=== PATIENT | male | born 1930 | race Caucasian/White ===

== ENCOUNTER 2020-10-11 08:50 | Outpatient (CLI) | payer MEDICARE | END 2020-10-11 08:51 | disposition home or self-care (01) | LOC: BICRAD 08:50 | PROVIDERS: ATTEND Student in an Organized Health Care Education/Training Program | DX: M25.551 Pain in right hip (principal); M16.11 Unilateral primary osteoarthritis, right hip ==

== ENCOUNTER 2020-10-12 09:20 | Inpatient (IN) | payer MEDICARE ==
[2020-10-12] MEDS ORDERED: Cefepime 2 GM VIAL ONE (09:50)
[2020-10-12] MEDS ORDERED: Ondansetron PF 4 MG/2 ML Vial ONE (09:50)
[2020-10-12 10:08] LABS: Hemoglobin 12.9 g/dL (14.0-18.0); Mean Corpuscular HGB CONC 32.7 g/dL (32.0-36.0); Mean Corpuscular Hemoglobin 31.5 pg (27.0-31.0); Mean Corpuscular Volume 96.3 fL (78.0-98.0); Mean Platelet Volume 8.2 fL (7.4-10.4); Platelet Count 223 thou/uL (130-400); RBC Distribution Width 11.9 % (11.5-14.5); Red Blood Cell (RBC) Count 4.09 mill/uL (4.70-6.10)
[2020-10-12 10:15] LABS: ALT (SGPT) 22 U/L (8-55); AST (SGOT) 26 U/L (5-34); Alkaline Phosphatase 113 U/L (40-110); Anion Gap 19 mmol/L (10-20); BUN (Urea Nitrogen) 73 mg/dL (8.4-25.7); Bilirubin, Total 0.5 mg/dL (0.2-1.2); Calc. Creatinine Clearance 0 mL/min (70-130); Calcium 8.9 mg/dL (7.8-10.44); Carbon Dioxide 18 mmol/L (23-31); Chloride 104 mmol/L (98-107); Globulin 3.1 g/dL (2.4-3.5); Glucose 124 mg/dL (83-110); Potassium 4.8 mmol/L (3.5-5.1); Protein, Total 6.1 g/dL (5.8-8.1); Sodium 136 mmol/L (136-145)
[2020-10-12 10:23] LABS: Band 16 % (5-11); Lymphocytes 3 % (21-51); MDiff Complete? YES; Monocytes 2 % (0-10); Neutrophil 79 % (42-75); Platelet Morphology Comment Appears Adequate; Polychromasia SLIGHT = 2-3 cells (100X) (0-2/hpf); Vacuoles SLIGHT
[2020-10-12] MEDS ORDERED: Vancomycin 1 GM/200 ML BAG ONE (10:49)
[2020-10-12] MEDS ORDERED: Fentanyl 100 MCG/2 ML VIAL ONE (13:33)
[2020-10-12] MEDS ORDERED: Norepinephrine 4 MG/4 ML VIAL ONE (13:33)
[2020-10-12] MEDS ORDERED: Albumin 5% 0 ML ONE (13:34)
[2020-10-12] MEDS ORDERED: SUGAMMADEX SODIUM 200 MG/2 ML VIAL ONE (13:34)
[2020-10-12] MEDS ORDERED: Rocuronium Bromide 10 MG/ML (10ML VIAL) ONE (14:00)
[2020-10-12] MEDS ORDERED: Glycopyrrolate 0.2 MG/ML 5 ML SYRINGE ONE (14:00)
[2020-10-12] MEDS ORDERED: Acetaminophen 325 MG TAB PO PRN (14:10)
[2020-10-12] MEDS ORDERED: Ondansetron PF 4 MG/2 ML Vial IVP PRN (14:10)
[2020-10-12] MEDS ORDERED: Ondansetron ODT 4 MG TAB PO PRN (14:10)
[2020-10-12 14:11] LABS: CKMB 1.1 ng/mL (0-6.6)
[2020-10-12] MEDS ORDERED: Electrolyte Replacement Protocol 1 EACH IVPB ONE (14:16)
[2020-10-12] MEDS ORDERED: Norepinephrine 8 MG/0.9% NS 250 ML IVPB PRN (14:16)
[2020-10-12 14:33] LABS: SARS-CoV-2 NAA Rapid Test Not Detected (NotDetected)
[2020-10-12 14:41] LABS: Bacteria/HPF 4+ HPF (None Seen); Bilirubin Negative (Negative); Blood, Urine 3+ (Negative); Clarity Extra Turbid (Clear); Glucose, Urine (Dipstick) Normal (Negative); Ketone, Urine Negative (Negative); Leukocyte 500 Leu/uL (Negative); Nitrite Negative (Negative); Protein, Urine (Dipstick) 50 mg/dL (Neg-Trace); RBC/HPF Greater than 50 HPF (0-3); Specific Gravity, Urine 1.007 (1.002-1.036); Squamous Epithelial None Seen HPF (0-3); Urobilinogen Normal mg/dL (Less than 2); WBC/HPF Greater than 50 HPF (0-3); pH, Urine 5.5 (5.0-9.0)
[2020-10-12] MEDS ORDERED: Iothalamate Meglumine 60% 50 ML VIAL FS ONE (14:44)
[2020-10-12] MEDS ORDERED: cefTRIAXone\\ROCEPHIN 1 GM in Sodium Chloride 0.9% 100 ML IVPB SCH (15:00)
[2020-10-12] MEDS: Sodium Chloride 0.9% 1,000 ML IV SCH (21:26)
[2020-10-13] MEDS: Hydrocortisone Sod Succ/PF 100 mg/2 ml Vial IVP SCH ×6 (00:33→23:00)
[2020-10-13 04:02] LABS: ALT (SGPT) 18 U/L (8-55); AST (SGOT) 25 U/L (5-34); Albumin 2.2 g/dL (3.4-4.8); Alkaline Phosphatase 85 U/L (40-110); Anion Gap 11 mmol/L (10-20); BUN (Urea Nitrogen) 56 mg/dL (8.4-25.7); Bilirubin, Total 0.3 mg/dL (0.2-1.2); Calc. Creatinine Clearance 21 mL/min (70-130); Calcium 8.1 mg/dL (7.8-10.44); Carbon Dioxide 20 mmol/L (23-31); Chloride 112 mmol/L (98-107); Globulin 2.4 g/dL (2.4-3.5); Glucose 106 mg/dL (83-110); Potassium 4.5 mmol/L (3.5-5.1); Protein, Total 4.6 g/dL (5.8-8.1); Sodium 138 mmol/L (136-145)
[2020-10-13 05:04] LABS: Band 28 % (5-11); Hemoglobin 10.2 g/dL (14.0-18.0); Lymphocytes 2 % (21-51); MDiff Complete? YES; Mean Corpuscular HGB CONC 32.9 g/dL (32.0-36.0); Mean Corpuscular Hemoglobin 32.2 pg (27.0-31.0); Mean Corpuscular Volume 97.8 fL (78.0-98.0); Mean Platelet Volume 8.5 fL (7.4-10.4); Monocytes 4 % (0-10); Neutrophil 66 % (42-75); Platelet Count 155 thou/uL (130-400); Red Blood Cell (RBC) Count 3.17 mill/uL (4.70-6.10); White Blood Cell (WBC) Count 20.7 thou/uL (4.8-10.8)
[2020-10-13] MEDS: Sodium Chloride 0.9% 1,000 ML IV SCH ×4 (06:51→19:57)
[2020-10-13] MEDS ORDERED: Pantoprazole 40 MG VIAL IVP SCH (09:00)
[2020-10-13] MEDS: Pantoprazole 40 MG VIAL IVP SCH (09:17)
[2020-10-13] MEDS ORDERED: Vancomycin HCl 1 GM in Premix Bag 1 BAG IVPB SCH (10:00)
[2020-10-13] MEDS ORDERED: Vancomycin HCl 1 GM in Sodium Chloride 0.9% 250 ML 250 ML IVPB SCH (10:00)
[2020-10-13] MEDS ORDERED: Vancomycin 1 GM in Premix Bag 1 BAG IVPB SCH (10:00)
[2020-10-13] MEDS ORDERED: Norepinephrine 8 MG/0.9% NS 250 ML IVPB PRN (10:42)
[2020-10-13 10:50] LABS: Vancomycin, Random 6.6 ug/mL (See Comment)
[2020-10-13] MEDS ORDERED: Vancomycin 1.5 GRAM/300 ML BAG 1.5 GM in Premix Bag 1 BAG IVPB SCH (11:00)
[2020-10-13] MEDS ORDERED: Ondansetron PF 4 MG/2 ML Vial IVP PRN (11:09)
[2020-10-13] MEDS ORDERED: Ondansetron ODT 4 MG TAB PO PRN (11:10)
[2020-10-13] MEDS: cefTRIAXone\\ROCEPHIN 1 GM in Sodium Chloride 0.9% 100 ML IVPB SCH (14:52)
[2020-10-13 16:06] LABS: Lactic Acid 3.9 mmol/L (0.5-2.2)
[2020-10-14] MEDS: Hydrocortisone Sod Succ/PF 100 mg/2 ml Vial IVP SCH ×3 (05:39→16:26)
[2020-10-14] MEDS: Sodium Chloride 0.9% 1,000 ML IV SCH ×2 (05:52→12:30)
[2020-10-14 06:25] LABS: Hemoglobin 9.7 g/dL (14.0-18.0); Mean Corpuscular HGB CONC 32.9 g/dL (32.0-36.0); Mean Corpuscular Hemoglobin 32.1 pg (27.0-31.0); Mean Corpuscular Volume 97.4 fL (78.0-98.0); Mean Platelet Volume 8.5 fL (7.4-10.4); Platelet Count 178 thou/uL (130-400); RBC Distribution Width 11.9 % (11.5-14.5); Red Blood Cell (RBC) Count 3.01 mill/uL (4.70-6.10)
[2020-10-14 06:38] LABS: Anion Gap 10 mmol/L (10-20); BUN (Urea Nitrogen) 30 mg/dL (8.4-25.7); Calc. Creatinine Clearance 49 mL/min (70-130); Calcium 7.5 mg/dL (7.8-10.44); Carbon Dioxide 21 mmol/L (23-31); Chloride 111 mmol/L (98-107); Glucose 131 mg/dL (83-110); Potassium 3.4 mmol/L (3.5-5.1); Sodium 139 mmol/L (136-145)
[2020-10-14] MEDS: Pantoprazole 40 MG VIAL IVP SCH (07:54)
[2020-10-14] MEDS: cefTRIAXone\\ROCEPHIN 1 GM in Sodium Chloride 0.9% 100 ML IVPB SCH (13:48)
[2020-10-14] MEDS ORDERED: Potassium Chloride 20 MEQ TAB PO SCH (15:30)
[2020-10-14] MEDS ORDERED: Calcium Carbonate 500 MG ChewTAB PO PRN (16:40)
[2020-10-14] MEDS: Cefdinir 300 MG CAP PO SCH (20:48)
[2020-10-15] MEDS: Hydrocortisone Sod Succ/PF 100 mg/2 ml Vial IVP SCH ×2 (00:15→05:44)
[2020-10-15 06:26] LABS: Hemoglobin 10.2 g/dL (14.0-18.0); Mean Corpuscular Hemoglobin 31.9 pg (27.0-31.0); Mean Corpuscular Volume 96.6 fL (78.0-98.0); Mean Platelet Volume 8.2 fL (7.4-10.4); Platelet Count 191 thou/uL (130-400); RBC Distribution Width 11.7 % (11.5-14.5); Red Blood Cell (RBC) Count 3.21 mill/uL (4.70-6.10); White Blood Cell (WBC) Count 18.1 thou/uL (4.8-10.8)
[2020-10-15 06:44] LABS: Anion Gap 10 mmol/L (10-20); BUN (Urea Nitrogen) 23 mg/dL (8.4-25.7); Calc. Creatinine Clearance 61 mL/min (70-130); Calcium 7.7 mg/dL (7.8-10.44); Carbon Dioxide 23 mmol/L (23-31); Chloride 109 mmol/L (98-107); Glucose 117 mg/dL (83-110); Potassium 3.2 mmol/L (3.5-5.1); Sodium 139 mmol/L (136-145)
[2020-10-15] MEDS ORDERED: Potassium Chloride 20 MEQ TAB PO SCH (08:45)
[2020-10-15] MEDS: Pantoprazole 40 MG VIAL IVP SCH (09:02)
[2020-10-15] MEDS: Cefdinir 300 MG CAP PO SCH ×2 (09:02→20:19)
[2020-10-16] MEDS: Acetaminophen 325 MG TAB PO PRN (01:24)
[2020-10-16 08:19] LABS: Anion Gap 10 mmol/L (10-20); BUN (Urea Nitrogen) 24 mg/dL (8.4-25.7); Calc. Creatinine Clearance 38 mL/min (70-130); Calcium 7.8 mg/dL (7.8-10.44); Carbon Dioxide 19 mmol/L (23-31); Chloride 109 mmol/L (98-107); Glucose 97 mg/dL (83-110); Potassium 3.2 mmol/L (3.5-5.1); Sodium 135 mmol/L (136-145)
[2020-10-16] MEDS: Pantoprazole 40 MG VIAL IVP SCH (08:36)
[2020-10-16] MEDS: Cefdinir 300 MG CAP PO SCH ×2 (08:36→21:38)
[2020-10-16 11:25] LABS: Hemoglobin 11.8 g/dL (14.0-18.0); Mean Corpuscular HGB CONC 33.3 g/dL (32.0-36.0); Mean Corpuscular Hemoglobin 32.2 pg (27.0-31.0); Mean Corpuscular Volume 96.6 fL (78.0-98.0); Mean Platelet Volume 7.8 fL (7.4-10.4); Platelet Count 218 thou/uL (130-400); RBC Distribution Width 11.9 % (11.5-14.5); Red Blood Cell (RBC) Count 3.68 mill/uL (4.70-6.10); White Blood Cell (WBC) Count 19.1 thou/uL (4.8-10.8)
[2020-10-16] MEDS ORDERED: Fentanyl 100 MCG/2 ML VIAL ONE (14:04)
[2020-10-16] MEDS ORDERED: Midazolam HCl 2 mg/2 ml Vial ONE (14:05)
[2020-10-16] MEDS: Carvedilol 3.125 MG TAB PO SCH (17:54)
[2020-10-17] MEDS: Acetaminophen 325 MG TAB PO PRN ×2 (03:27→20:13)
[2020-10-17] MEDS: Levothyroxine Sodium 50 MCG TAB PO SCH (06:00)
[2020-10-17 08:20] LABS: Anion Gap 10 mmol/L (10-20); BUN (Urea Nitrogen) 21 mg/dL (8.4-25.7); Calc. Creatinine Clearance 47 mL/min (70-130); Calcium 7.6 mg/dL (7.8-10.44); Carbon Dioxide 21 mmol/L (23-31); Chloride 108 mmol/L (98-107); Glucose 91 mg/dL (83-110); Potassium 3.2 mmol/L (3.5-5.1); Sodium 136 mmol/L (136-145)
[2020-10-17 08:52] LABS: Eosinophils 3 % (0-10); Hemoglobin 10.5 g/dL (14.0-18.0); Lymphocytes 10 % (21-51); MDiff Complete? YES; Mean Corpuscular HGB CONC 33.3 g/dL (32.0-36.0); Mean Corpuscular Volume 96.2 fL (78.0-98.0); Mean Platelet Volume 8.4 fL (7.4-10.4); Monocytes 1 % (0-10); Neutrophil 86 % (42-75); Platelet Count 190 thou/uL (130-400); Platelet Morphology Comment Appears Adequate; Red Blood Cell (RBC) Count 3.27 mill/uL (4.70-6.10); White Blood Cell (WBC) Count 17.4 thou/uL (4.8-10.8)
[2020-10-17] MEDS: Pantoprazole 40 MG VIAL IVP SCH (09:15)
[2020-10-17] MEDS: Lactinex Tablet PO SCH (09:15)
[2020-10-17] MEDS: Carvedilol 3.125 MG TAB PO SCH ×2 (09:15→17:31)
[2020-10-17] MEDS: Multivit, Therapeutic 1 TAB PO SCH (09:15)
[2020-10-17] MEDS: Fish Oil 1,000 MG CAP PO SCH (09:15)
[2020-10-17] MEDS: Cefdinir 300 MG CAP PO SCH ×2 (09:15→20:13)
[2020-10-18 05:56] LABS: Hemoglobin 10.1 g/dL (14.0-18.0); Mean Corpuscular HGB CONC 33.4 g/dL (32.0-36.0); Mean Corpuscular Hemoglobin 32.3 pg (27.0-31.0); Mean Corpuscular Volume 96.7 fL (78.0-98.0); Mean Platelet Volume 8.3 fL (7.4-10.4); Platelet Count 195 thou/uL (130-400); RBC Distribution Width 11.9 % (11.5-14.5); Red Blood Cell (RBC) Count 3.12 mill/uL (4.70-6.10); White Blood Cell (WBC) Count 16.2 thou/uL (4.8-10.8)
[2020-10-18 05:57] LABS: Band 1 % (5-11); Eosinophils 1 % (0-10); Hypochromia SLIGHT = 6-15 cells (100X) (0-5/hpf); Lymphocytes 10 % (21-51); MDiff Complete? YES; Monocytes 3 % (0-10); Neutrophil 85 % (42-75); Platelet Morphology Comment Appears Adequate
[2020-10-18] MEDS: Levothyroxine Sodium 50 MCG TAB PO SCH (06:07)
[2020-10-18 06:12] LABS: Anion Gap 8 mmol/L (10-20); BUN (Urea Nitrogen) 19 mg/dL (8.4-25.7); Calc. Creatinine Clearance 62 mL/min (70-130); Calcium 7.8 mg/dL (7.8-10.44); Carbon Dioxide 26 mmol/L (23-31); Chloride 106 mmol/L (98-107); Glucose 93 mg/dL (83-110); Potassium 3.1 mmol/L (3.5-5.1); Sodium 137 mmol/L (136-145)
[2020-10-18] MEDS: Potassium Chloride 20 MEQ TAB PO SCH ×3 (09:14→20:44)
[2020-10-18] MEDS: Lactinex Tablet PO SCH (09:16)
[2020-10-18] MEDS: Fish Oil 1,000 MG CAP PO SCH (09:16)
[2020-10-18] MEDS: Cefdinir 300 MG CAP PO SCH ×2 (09:16→20:44)
[2020-10-18] MEDS: Carvedilol 3.125 MG TAB PO SCH ×2 (09:16→16:18)
[2020-10-18] MEDS: Multivit, Therapeutic 1 TAB PO SCH (09:16)
[2020-10-18] MEDS: Pantoprazole 40 MG VIAL IVP SCH (09:17)
[2020-10-19] MEDS: Levothyroxine Sodium 50 MCG TAB PO SCH (05:52)
[2020-10-19] MEDS: Carvedilol 3.125 MG TAB PO SCH ×2 (05:52→17:58)
[2020-10-19 06:28] LABS: Band 3 % (5-11); Eosinophils 2 % (0-10); Lymphocytes 8 % (21-51); MDiff Complete? YES; Mean Corpuscular HGB CONC 32.7 g/dL (32.0-36.0); Mean Corpuscular Hemoglobin 31.7 pg (27.0-31.0); Mean Corpuscular Volume 96.8 fL (78.0-98.0); Mean Platelet Volume 8.9 fL (7.4-10.4); Metamyelocyte 2 % (0-0); Monocytes 4 % (0-10); Myelocyte 1 % (0-0); Neutrophil 80 % (42-75); Platelet Count 185 thou/uL (130-400); Platelet Morphology Comment Appears Adequate; RBC Distribution Width 12.3 % (11.5-14.5); Red Blood Cell (RBC) Count 3.79 mill/uL (4.70-6.10); White Blood Cell (WBC) Count 16.1 thou/uL (4.8-10.8)
[2020-10-19 06:31] LABS: Anion Gap 9 mmol/L (10-20); BUN (Urea Nitrogen) 14 mg/dL (8.4-25.7); Calc. Creatinine Clearance 70 mL/min (70-130); Carbon Dioxide 23 mmol/L (23-31); Chloride 108 mmol/L (98-107); Glucose 98 mg/dL (83-110); Potassium 4.2 mmol/L (3.5-5.1); Sodium 136 mmol/L (136-145)
[2020-10-19] MEDS ORDERED: Sterile Water 0 ML ONE (09:06)
[2020-10-19] MEDS ORDERED: Lidocaine 1% (PF) 30 ML VIAL ONE (09:06)
[2020-10-19] MEDS ORDERED: Bupivacaine 0.25% HCL 30 ML VIAL ONE (09:06)
[2020-10-19] MEDS ORDERED: Iopamidol 0 ML ONE (09:07)
[2020-10-19] MEDS ORDERED: Iothalamate Meglumine 60% 50 ML VIAL FS ONE (09:08)
[2020-10-19] MEDS ORDERED: Fentanyl 100 MCG/2 ML VIAL ONE (09:10)
[2020-10-19] MEDS ORDERED: PHENYLEPHRINE-NS 100 MCG/ML 10 ML SYRINGE ONE (09:34)
[2020-10-19] MEDS ORDERED: Lidocaine 1% PF 5 ML VIAL ONE (09:34)
[2020-10-19] MEDS ORDERED: Glycopyrrolate 0.2 MG/ML 5 ML SYRINGE ONE (09:34)
[2020-10-19] MEDS ORDERED: Dexamethasone 20 MG/5 ML VIAL ONE (09:34)
[2020-10-19] MEDS ORDERED: ePHEDrine Sulfate 50 MG/10 ML VIAL ONE (09:34)
[2020-10-19] MEDS ORDERED: Rocuronium Bromide 10 MG/ML (10ML VIAL) ONE (09:34)
[2020-10-19] MEDS ORDERED: PROPOFOL 200 MG/20 ML VIAL ONE (09:34)
[2020-10-19] MEDS ORDERED: Ondansetron PF 4 MG/2 ML Vial ONE (09:34)
[2020-10-19] MEDS ORDERED: Phenylephrine 10 MG/ML VIAL ONE (10:25)
[2020-10-19] MEDS: Cefdinir 300 MG CAP PO SCH (12:02)
[2020-10-19] MEDS: Pantoprazole 40 MG VIAL IVP SCH (12:16)
[2020-10-19] MEDS: Lactinex Tablet PO SCH (12:17)
[2020-10-19] MEDS: Fish Oil 1,000 MG CAP PO SCH (12:17)
[2020-10-19] MEDS: Multivit, Therapeutic 1 TAB PO SCH (12:18)
[2020-10-19] MEDS: Acetaminophen 325 MG TAB PO PRN (13:10)
[2020-10-19] MEDS ORDERED: Morphine 4 MG/ML VIAL SLOW IVP PRN (13:45)
[2020-10-19] MEDS ORDERED: Sodium Chloride 0.9% 1,000 ML IV SCH ×3 (13:45→21:00)
[2020-10-19] MEDS ORDERED: Tetrahydrozoline 0.05% OPTH 15 ML BOT EA EYE PRN (13:48)
[2020-10-19] MEDS: cefTRIAXone\\ROCEPHIN 1 GM in Sodium Chloride 0.9% 100 ML IVPB SCH (14:12)
[2020-10-19] MEDS: traMADol HCl 50 MG TAB PO PRN (14:15)
[2020-10-19] MEDS ORDERED: Tamsulosin HCl 0.4 MG CAP PO SCH (15:30)
[2020-10-19] MEDS ORDERED: Oxybutynin 5 MG TAB PO SCH (15:30)
[2020-10-19] MEDS ORDERED: Sodium Chloride 0.9% 250 ML IV SCH ×2 (15:45→17:45)
[2020-10-19 15:56] LABS: Hemoglobin 11.7 g/dL (14.0-18.0); Mean Corpuscular HGB CONC 33.4 g/dL (32.0-36.0); Mean Corpuscular Hemoglobin 32.5 pg (27.0-31.0); Mean Corpuscular Volume 97.3 fL (78.0-98.0); Platelet Count 227 thou/uL (130-400); RBC Distribution Width 12.2 % (11.5-14.5); Red Blood Cell (RBC) Count 3.59 mill/uL (4.70-6.10)
[2020-10-19 16:15] LABS: Anion Gap 11 mmol/L (10-20); BUN (Urea Nitrogen) 16 mg/dL (8.4-25.7); Calc. Creatinine Clearance 50 mL/min (70-130); Carbon Dioxide 24 mmol/L (23-31); Chloride 107 mmol/L (98-107); Glucose 135 mg/dL (83-110); Potassium 4.7 mmol/L (3.5-5.1); Sodium 137 mmol/L (136-145)
[2020-10-19 16:24] LABS: INR-International Normal Ratio 1.1; PTT 31.5 sec (22.9-36.1); Prothrombin Time 14.5 sec (12.0-14.7)
[2020-10-19 16:24] LABS: Band 6 % (5-11); Lymphocytes 6 % (21-51); MDiff Complete? YES; Neutrophil 82 % (42-75); Platelet Morphology Comment Appears Adequate; RBC Morphology Normal; Reactive Lymphocytes 6 % (0-10)
[2020-10-19] MEDS: Ketorolac Tromethamine 30 MG/ML VIAL IVP SCH ×2 (18:28→23:24)
[2020-10-19] MEDS: Oxybutynin 5 MG TAB PO SCH (20:39)
[2020-10-19] MEDS ORDERED: GoLYTELY 4,000 ml Bottle PO SCH (21:45)
[2020-10-20] MEDS: Levothyroxine Sodium 50 MCG TAB PO SCH (05:29)
[2020-10-20] MEDS: Ketorolac Tromethamine 30 MG/ML VIAL IVP SCH ×3 (05:29→17:17)
[2020-10-20] MEDS: Carvedilol 3.125 MG TAB PO SCH ×2 (06:29→17:17)
[2020-10-20 06:34] LABS: Mean Corpuscular Hemoglobin 31.4 pg (27.0-31.0); Mean Corpuscular Volume 98.3 fL (78.0-98.0); Mean Platelet Volume 8.2 fL (7.4-10.4); Platelet Count 245 thou/uL (130-400); RBC Distribution Width 12.5 % (11.5-14.5); White Blood Cell (WBC) Count 17.5 thou/uL (4.8-10.8)
[2020-10-20 06:47] LABS: Anion Gap 11 mmol/L (10-20); BUN (Urea Nitrogen) 18 mg/dL (8.4-25.7); Calc. Creatinine Clearance 39 mL/min (70-130); Calcium 7.7 mg/dL (7.8-10.44); Carbon Dioxide 23 mmol/L (23-31); Chloride 105 mmol/L (98-107); Glucose 96 mg/dL (83-110); Potassium 4.5 mmol/L (3.5-5.1); Sodium 134 mmol/L (136-145)
[2020-10-20 08:03] LABS: Band 1 % (5-11); Eosinophils 1 % (0-10); Lymphocytes 14 % (21-51); MDiff Complete? YES; Monocytes 4 % (0-10); Neutrophil 80 % (42-75); Polychromasia SLIGHT = 2-3 cells (100X) (0-2/hpf)
[2020-10-20] MEDS: Lactinex Tablet PO SCH (08:29)
[2020-10-20] MEDS: Oxybutynin 5 MG TAB PO SCH ×3 (08:29→19:59)
[2020-10-20] MEDS: Pantoprazole 40 MG VIAL IVP SCH (08:29)
[2020-10-20] MEDS: Multivit, Therapeutic 1 TAB PO SCH (08:29)
[2020-10-20] MEDS: Fish Oil 1,000 MG CAP PO SCH (08:29)
[2020-10-20] MEDS: Tamsulosin HCl 0.4 MG CAP PO SCH (08:30)
[2020-10-20] MEDS ORDERED: PROPOFOL 200 MG/20 ML VIAL ONE (11:05)
[2020-10-20] MEDS ORDERED: Lidocaine 1% PF 5 ML VIAL ONE (11:05)
[2020-10-20] MEDS: cefTRIAXone\\ROCEPHIN 1 GM in Sodium Chloride 0.9% 100 ML IVPB SCH (14:34)
[2020-10-21] MEDS: Ketorolac Tromethamine 30 MG/ML VIAL IVP SCH ×4 (00:07→17:26)
[2020-10-21 06:02] LABS: #Eosinphils 0.3 thou/uL (0.0-0.7); #Lymphocytes 1.3 thou/uL (1.20-3.40); #Monocytes 0.6 thou/uL (0.11-0.59); %Basophils 0.4 % (0.0-1.0); %Eosinophils 2.5 % (0.0-10.0); %Lymphocytes 11.4 % (21.0-51.0); %Monocytes 5.3 % (0.0-10.0); %Neutrophils 80.5 % (42.0-75.0); Hemoglobin 9.5 g/dL (14.0-18.0); Mean Corpuscular Hemoglobin 32.3 pg (27.0-31.0); Mean Corpuscular Volume 97.9 fL (78.0-98.0); Mean Platelet Volume 7.9 fL (7.4-10.4); Platelet Count 192 thou/uL (130-400); RBC Distribution Width 12.5 % (11.5-14.5); Red Blood Cell (RBC) Count 2.95 mill/uL (4.70-6.10); White Blood Cell (WBC) Count 11.2 thou/uL (4.8-10.8)
[2020-10-21] MEDS: Levothyroxine Sodium 50 MCG TAB PO SCH (06:16)
[2020-10-21 06:23] LABS: Anion Gap 10 mmol/L (10-20); BUN (Urea Nitrogen) 19 mg/dL (8.4-25.7); Calc. Creatinine Clearance 35 mL/min (70-130); Calcium 7.7 mg/dL (7.8-10.44); Carbon Dioxide 22 mmol/L (23-31); Chloride 106 mmol/L (98-107); Glucose 88 mg/dL (83-110); Potassium 3.9 mmol/L (3.5-5.1); Sodium 134 mmol/L (136-145)
[2020-10-21] MEDS: Carvedilol 3.125 MG TAB PO SCH ×2 (08:13→16:44)
[2020-10-21] MEDS: Pantoprazole 40 MG VIAL IVP SCH (08:14)
[2020-10-21] MEDS ORDERED: Midazolam HCl 2 mg/2 ml Vial ONE (08:49)
[2020-10-21] MEDS ORDERED: Fentanyl 100 MCG/2 ML VIAL ONE (08:49)
[2020-10-21] MEDS ORDERED: Sodium Bicarbonate 2.5 MEQ/5 ML VIAL ONE (09:15)
[2020-10-21] MEDS: Lactinex Tablet PO SCH (09:55)
[2020-10-21] MEDS: Tamsulosin HCl 0.4 MG CAP PO SCH (09:56)
[2020-10-21] MEDS: Fish Oil 1,000 MG CAP PO SCH (09:56)
[2020-10-21] MEDS: Oxybutynin 5 MG TAB PO SCH ×3 (09:56→21:21)
[2020-10-21] MEDS: Multivit, Therapeutic 1 TAB PO SCH (09:56)
[2020-10-21 10:53] VITALS: BMI 24.1
[2020-10-21] MEDS: cefTRIAXone\\ROCEPHIN 1 GM in Sodium Chloride 0.9% 100 ML IVPB SCH (13:54)
[2020-10-21] MEDS: Phenazopyridine HCl 100 MG TAB PO SCH (21:21)
[2020-10-22] MEDS: Ketorolac Tromethamine 30 MG/ML VIAL IVP SCH ×5 (00:34→22:44)
[2020-10-22 00:51] LABS: SARS-CoV-2 NAA Rapid Test Not Detected (NotDetected)
[2020-10-22] MEDS: Levothyroxine Sodium 50 MCG TAB PO SCH (05:36)
[2020-10-22] MEDS: Carvedilol 3.125 MG TAB PO SCH ×2 (05:36→16:40)
[2020-10-22] MEDS: traMADol HCl 50 MG TAB PO PRN (05:36)
[2020-10-22 07:05] LABS: Hemoglobin 9.8 g/dL (14.0-18.0)
[2020-10-22 07:44] LABS: Anion Gap 9 mmol/L (10-20); BUN (Urea Nitrogen) 18 mg/dL (8.4-25.7); Calc. Creatinine Clearance 39 mL/min (70-130); Calcium 8.3 mg/dL (7.8-10.44); Carbon Dioxide 24 mmol/L (23-31); Chloride 105 mmol/L (98-107); Glucose 102 mg/dL (83-110); Potassium 4.1 mmol/L (3.5-5.1); Sodium 134 mmol/L (136-145)
[2020-10-22] MEDS: Fish Oil 1,000 MG CAP PO SCH (07:51)
[2020-10-22] MEDS: Oxybutynin 5 MG TAB PO SCH ×3 (07:51→22:44)
[2020-10-22] MEDS: Pantoprazole 40 MG VIAL IVP SCH (07:51)
[2020-10-22] MEDS: Lactinex Tablet PO SCH (07:51)
[2020-10-22] MEDS: Multivit, Therapeutic 1 TAB PO SCH (07:51)
[2020-10-22] MEDS: Tamsulosin HCl 0.4 MG CAP PO SCH (07:52)
[2020-10-22] MEDS: Phenazopyridine HCl 100 MG TAB PO SCH (07:52)
[2020-10-22] MEDS ORDERED: Fentanyl 100 MCG/2 ML VIAL ONE (09:59)
[2020-10-22] MEDS ORDERED: PROPOFOL 200 MG/20 ML VIAL ONE (10:18)
[2020-10-22] MEDS ORDERED: Ondansetron PF 4 MG/2 ML Vial ONE (10:18)
[2020-10-22] MEDS ORDERED: Lidocaine 1% PF 5 ML VIAL ONE (10:18)
[2020-10-22] MEDS ORDERED: PHENYLEPHRINE-NS 100 MCG/ML 10 ML SYRINGE ONE (10:18)
[2020-10-22] MEDS ORDERED: ePHEDrine Sulfate 50 MG/10 ML VIAL ONE (10:18)
[2020-10-22] MEDS ORDERED: Iothalamate Meglumine 60% 50 ML VIAL FS ONE (10:34)
[2020-10-22] MEDS ORDERED: Promethazine HCl 25 MG/ML VIAL IM PRN (11:27)
[2020-10-22] MEDS ORDERED: Promethazine HCl 25 MG/ML VIAL SLOW IVP PRN (11:27)
[2020-10-22] MEDS ORDERED: Ondansetron HCl/PF 4 MG/2 ML Vial IVP PRN (11:27)
[2020-10-22] MEDS: cefTRIAXone\\ROCEPHIN 1 GM in Sodium Chloride 0.9% 100 ML IVPB SCH (13:43)
[2020-10-22 16:40] LABS: #Lymphocytes 0.6 thou/uL (1.20-3.40); #Monocytes 0.2 thou/uL (0.11-0.59); #Neutrophils 14.9 thou/uL (1.40-6.50); %Basophils 0.1 % (0.0-1.0); %Eosinophils 0.3 % (0.0-10.0); %Lymphocytes 3.9 % (21.0-51.0); %Neutrophils 94.7 % (42.0-75.0); Hemoglobin 11.6 g/dL (14.0-18.0); Mean Corpuscular HGB CONC 32.1 g/dL (32.0-36.0); Mean Corpuscular Hemoglobin 31.4 pg (27.0-31.0); Mean Corpuscular Volume 97.9 fL (78.0-98.0); Mean Platelet Volume 7.9 fL (7.4-10.4); Platelet Count 202 thou/uL (130-400); RBC Distribution Width 12.6 % (11.5-14.5); Red Blood Cell (RBC) Count 3.71 mill/uL (4.70-6.10); White Blood Cell (WBC) Count 15.7 thou/uL (4.8-10.8)
[2020-10-23] MEDS: Ketorolac Tromethamine 30 MG/ML VIAL IVP SCH ×4 (05:49→23:25)
[2020-10-23] MEDS: Levothyroxine Sodium 50 MCG TAB PO SCH (05:50)
[2020-10-23 05:55] LABS: Phosphorus 2.7 mg/dL (2.3-4.7)
[2020-10-23 05:59] LABS: Anion Gap 11 mmol/L (10-20); BUN (Urea Nitrogen) 20 mg/dL (8.4-25.7); Calc. Creatinine Clearance 47 mL/min (70-130); Calcium 8.1 mg/dL (7.8-10.44); Carbon Dioxide 25 mmol/L (23-31); Chloride 103 mmol/L (98-107); Glucose 125 mg/dL (83-110); Magnesium 1.5 mg/dL (1.6-2.6); Potassium 4.5 mmol/L (3.5-5.1); Sodium 134 mmol/L (136-145)
[2020-10-23 06:09] LABS: Hemoglobin 9.3 g/dL (14.0-18.0); Mean Corpuscular HGB CONC 30.9 g/dL (32.0-36.0); Mean Corpuscular Hemoglobin 30.6 pg (27.0-31.0); Mean Platelet Volume 8.8 fL (7.4-10.4); Platelet Count 211 thou/uL (130-400); RBC Distribution Width 12.7 % (11.5-14.5); Red Blood Cell (RBC) Count 3.02 mill/uL (4.70-6.10); White Blood Cell (WBC) Count 19.6 thou/uL (4.8-10.8)
[2020-10-23 06:40] LABS: Band 1 % (5-11); Lymphocytes 6 % (21-51); MDiff Complete? YES; Monocytes 3 % (0-10); Neutrophil 90 % (42-75)
[2020-10-23] MEDS: Fish Oil 1,000 MG CAP PO SCH (08:44)
[2020-10-23] MEDS: Multivit, Therapeutic 1 TAB PO SCH (08:44)
[2020-10-23] MEDS: Lactinex Tablet PO SCH (08:44)
[2020-10-23] MEDS: Carvedilol 3.125 MG TAB PO SCH ×2 (08:44→16:39)
[2020-10-23] MEDS: Oxybutynin 5 MG TAB PO SCH ×3 (08:44→20:20)
[2020-10-23] MEDS: Tamsulosin HCl 0.4 MG CAP PO SCH (08:44)
[2020-10-23] MEDS: Pantoprazole 40 MG VIAL IVP SCH (08:45)
[2020-10-23] MEDS ORDERED: Magnesium 2 GM/50 ML 2 GM in Premix Bag 1 BAG IVPB SCH (10:45)
[2020-10-23] MEDS: cefTRIAXone\\ROCEPHIN 1 GM in Sodium Chloride 0.9% 100 ML IVPB SCH (14:36)
[2020-10-23] MEDS: Docusate 100 MG CAP PO SCH (20:20)
[2020-10-24] MEDS: Levothyroxine Sodium 50 MCG TAB PO SCH (05:27)
[2020-10-24] MEDS: Ketorolac Tromethamine 30 MG/ML VIAL IVP SCH (05:29)
[2020-10-24 06:08] LABS: #Basophils 0.1 thou/uL (0.0-0.2); #Eosinphils 0.2 thou/uL (0.0-0.7); #Lymphocytes 1.2 thou/uL (1.20-3.40); #Monocytes 0.7 thou/uL (0.11-0.59); #Neutrophils 9.6 thou/uL (1.40-6.50); %Basophils 0.8 % (0.0-1.0); %Eosinophils 1.7 % (0.0-10.0); %Lymphocytes 10.4 % (21.0-51.0); %Monocytes 5.7 % (0.0-10.0); %Neutrophils 81.4 % (42.0-75.0); Hemoglobin 8.2 g/dL (14.0-18.0); Mean Corpuscular HGB CONC 32.7 g/dL (32.0-36.0); Mean Corpuscular Hemoglobin 32.3 pg (27.0-31.0); Mean Corpuscular Volume 98.7 fL (78.0-98.0); Mean Platelet Volume 8.1 fL (7.4-10.4); Platelet Count 169 thou/uL (130-400); RBC Distribution Width 12.7 % (11.5-14.5); Red Blood Cell (RBC) Count 2.54 mill/uL (4.70-6.10); White Blood Cell (WBC) Count 11.8 thou/uL (4.8-10.8)
[2020-10-24 06:32] LABS: ALT (SGPT) 17 U/L (8-55); AST (SGOT) 29 U/L (5-34); Albumin 2.2 g/dL (3.4-4.8); Alkaline Phosphatase 86 U/L (40-110); Anion Gap 11 mmol/L (10-20); BUN (Urea Nitrogen) 15 mg/dL (8.4-25.7); Bilirubin, Total 0.5 mg/dL (0.2-1.2); Calc. Creatinine Clearance 63 mL/min (70-130); Carbon Dioxide 23 mmol/L (23-31); Chloride 105 mmol/L (98-107); Globulin 2.1 g/dL (2.4-3.5); Glucose 86 mg/dL (83-110); Magnesium 1.7 mg/dL (1.6-2.6); Potassium 4.2 mmol/L (3.5-5.1); Protein, Total 4.3 g/dL (5.8-8.1); Sodium 135 mmol/L (136-145)
[2020-10-24] MEDS: Tamsulosin HCl 0.4 MG CAP PO SCH (08:25)
[2020-10-24] MEDS: Docusate 100 MG CAP PO SCH ×2 (08:25→20:11)
[2020-10-24] MEDS: Oxybutynin 5 MG TAB PO SCH ×3 (08:26→20:12)
[2020-10-24] MEDS: Fish Oil 1,000 MG CAP PO SCH (08:26)
[2020-10-24] MEDS: Lactinex Tablet PO SCH (08:26)
[2020-10-24] MEDS: Carvedilol 3.125 MG TAB PO SCH ×2 (08:26→17:57)
[2020-10-24] MEDS: Multivit, Therapeutic 1 TAB PO SCH (08:26)
[2020-10-24] MEDS ORDERED: Magnesium 2 GM/50 ML 2 GM in Premix Bag 1 BAG IVPB SCH (08:30)
[2020-10-24] MEDS: cefTRIAXone\\ROCEPHIN 1 GM in Sodium Chloride 0.9% 100 ML IVPB SCH (14:13)
[2020-10-24 16:18] LABS: Hemoglobin 7.9 g/dL (14.0-18.0)
[2020-10-25] MEDS: traMADol HCl 50 MG TAB PO PRN (00:15)
[2020-10-25] MEDS: Levothyroxine Sodium 50 MCG TAB PO SCH (05:18)
[2020-10-25 06:45] LABS: #Basophils 0.1 thou/uL (0.0-0.2); #Eosinphils 0.2 thou/uL (0.0-0.7); #Lymphocytes 0.9 thou/uL (1.20-3.40); #Monocytes 0.8 thou/uL (0.11-0.59); #Neutrophils 7.2 thou/uL (1.40-6.50); %Basophils 0.7 % (0.0-1.0); %Eosinophils 2.7 % (0.0-10.0); %Lymphocytes 9.4 % (21.0-51.0); %Monocytes 9.1 % (0.0-10.0); %Neutrophils 78.2 % (42.0-75.0); Mean Corpuscular HGB CONC 32.9 g/dL (32.0-36.0); Mean Corpuscular Hemoglobin 32.5 pg (27.0-31.0); Mean Corpuscular Volume 98.7 fL (78.0-98.0); Mean Platelet Volume 8.1 fL (7.4-10.4); Platelet Count 160 thou/uL (130-400); RBC Distribution Width 12.4 % (11.5-14.5); Red Blood Cell (RBC) Count 2.45 mill/uL (4.70-6.10); White Blood Cell (WBC) Count 9.2 thou/uL (4.8-10.8)
[2020-10-25 07:05] LABS: Anion Gap 9 mmol/L (10-20); BUN (Urea Nitrogen) 11 mg/dL (8.4-25.7); Calc. Creatinine Clearance 73 mL/min (70-130); Carbon Dioxide 27 mmol/L (23-31); Chloride 105 mmol/L (98-107); Glucose 94 mg/dL (83-110); Magnesium 1.8 mg/dL (1.6-2.6); Potassium 3.9 mmol/L (3.5-5.1); Sodium 137 mmol/L (136-145)
[2020-10-25] MEDS: Oxybutynin 5 MG TAB PO SCH ×3 (08:07→20:17)
[2020-10-25] MEDS: Multivit, Therapeutic 1 TAB PO SCH (08:07)
[2020-10-25] MEDS: Lactinex Tablet PO SCH (08:07)
[2020-10-25] MEDS: Docusate 100 MG CAP PO SCH ×2 (08:07→20:17)
[2020-10-25] MEDS: Fish Oil 1,000 MG CAP PO SCH (08:07)
[2020-10-25] MEDS: Tamsulosin HCl 0.4 MG CAP PO SCH (08:07)
[2020-10-25] MEDS: Carvedilol 3.125 MG TAB PO SCH ×2 (08:07→16:45)
[2020-10-25] MEDS ORDERED: Magnesium 2 GM/50 ML 2 GM in Premix Bag 1 BAG IVPB SCH (08:45)
[2020-10-25] MEDS: cefTRIAXone\\ROCEPHIN 1 GM in Sodium Chloride 0.9% 100 ML IVPB SCH (13:14)
[2020-10-26] MEDS: Levothyroxine Sodium 50 MCG TAB PO SCH (05:05)
[2020-10-26 06:22] LABS: #Eosinphils 0.3 thou/uL (0.0-0.7); #Lymphocytes 1.1 thou/uL (1.20-3.40); #Monocytes 0.7 thou/uL (0.11-0.59); #Neutrophils 6.5 thou/uL (1.40-6.50); %Basophils 0.5 % (0.0-1.0); %Eosinophils 3.6 % (0.0-10.0); %Lymphocytes 12.3 % (21.0-51.0); %Monocytes 8.2 % (0.0-10.0); %Neutrophils 75.3 % (42.0-75.0); Hemoglobin 8.2 g/dL (14.0-18.0); Mean Corpuscular HGB CONC 31.9 g/dL (32.0-36.0); Mean Corpuscular Hemoglobin 31.6 pg (27.0-31.0); Mean Platelet Volume 8.1 fL (7.4-10.4); Platelet Count 171 thou/uL (130-400); RBC Distribution Width 12.9 % (11.5-14.5); Red Blood Cell (RBC) Count 2.58 mill/uL (4.70-6.10); White Blood Cell (WBC) Count 8.7 thou/uL (4.8-10.8)
[2020-10-26 06:45] LABS: Anion Gap 9 mmol/L (10-20); BUN (Urea Nitrogen) 10 mg/dL (8.4-25.7); Calc. Creatinine Clearance 78 mL/min (70-130); Calcium 8.2 mg/dL (7.8-10.44); Carbon Dioxide 27 mmol/L (23-31); Chloride 102 mmol/L (98-107); Glucose 96 mg/dL (83-110); Sodium 134 mmol/L (136-145)
[2020-10-26] MEDS: Multivit, Therapeutic 1 TAB PO SCH (08:53)
[2020-10-26] MEDS: Lactinex Tablet PO SCH (08:53)
[2020-10-26] MEDS: Oxybutynin 5 MG TAB PO SCH ×3 (08:53→20:53)
[2020-10-26] MEDS: Docusate 100 MG CAP PO SCH ×2 (08:53→20:53)
[2020-10-26] MEDS: Tamsulosin HCl 0.4 MG CAP PO SCH (08:53)
[2020-10-26] MEDS: Fish Oil 1,000 MG CAP PO SCH (08:53)
[2020-10-26] MEDS: Carvedilol 3.125 MG TAB PO SCH ×2 (08:53→17:45)
[2020-10-26] MEDS: cefTRIAXone\\ROCEPHIN 1 GM in Sodium Chloride 0.9% 100 ML IVPB SCH (14:25)
[2020-10-27] MEDS: Levothyroxine Sodium 50 MCG TAB PO SCH (05:00)
[2020-10-27 06:20] LABS: #Basophils 0.1 thou/uL (0.0-0.2); #Eosinphils 0.3 thou/uL (0.0-0.7); #Monocytes 0.9 thou/uL (0.11-0.59); #Neutrophils 6.3 thou/uL (1.40-6.50); Hemoglobin 8.2 g/dL (14.0-18.0); Mean Corpuscular HGB CONC 33.3 g/dL (32.0-36.0); Platelet Count 158 thou/uL (130-400); RBC Distribution Width 13.2 % (11.5-14.5); Red Blood Cell (RBC) Count 2.49 mill/uL (4.70-6.10); White Blood Cell (WBC) Count 8.5 thou/uL (4.8-10.8)
[2020-10-27 06:40] LABS: Anion Gap 9 mmol/L (10-20); BUN (Urea Nitrogen) 10 mg/dL (8.4-25.7); Calc. Creatinine Clearance 71 mL/min (70-130); Calcium 8.2 mg/dL (7.8-10.44); Carbon Dioxide 28 mmol/L (23-31); Chloride 101 mmol/L (98-107); Glucose 111 mg/dL (83-110); Potassium 3.8 mmol/L (3.5-5.1); Sodium 134 mmol/L (136-145)
[2020-10-27] MEDS: Docusate 100 MG CAP PO SCH ×2 (08:56→20:15)
[2020-10-27] MEDS: Lactinex Tablet PO SCH (08:56)
[2020-10-27] MEDS: Multivit, Therapeutic 1 TAB PO SCH (08:56)
[2020-10-27] MEDS: Tamsulosin HCl 0.4 MG CAP PO SCH (08:56)
[2020-10-27] MEDS: Carvedilol 3.125 MG TAB PO SCH ×2 (08:56→16:40)
[2020-10-27] MEDS: Oxybutynin 5 MG TAB PO SCH ×3 (08:56→20:15)
[2020-10-27] MEDS: Fish Oil 1,000 MG CAP PO SCH (08:56)
[2020-10-27] MEDS: cefTRIAXone\\ROCEPHIN 1 GM in Sodium Chloride 0.9% 100 ML IVPB SCH (14:34)
[2020-10-28] MEDS: Levothyroxine Sodium 50 MCG TAB PO SCH (05:12)
[2020-10-28] MEDS: Tamsulosin HCl 0.4 MG CAP PO SCH (07:49)
[2020-10-28] MEDS: Lactinex Tablet PO SCH (07:49)
[2020-10-28] MEDS: Docusate 100 MG CAP PO SCH ×2 (07:50→20:01)
[2020-10-28] MEDS: Fish Oil 1,000 MG CAP PO SCH (07:50)
[2020-10-28] MEDS: Multivit, Therapeutic 1 TAB PO SCH (07:50)
[2020-10-28] MEDS: Carvedilol 3.125 MG TAB PO SCH ×2 (07:50→16:50)
[2020-10-28] MEDS: Oxybutynin 5 MG TAB PO SCH ×2 (07:50→14:09)
[2020-10-28] MEDS: cefTRIAXone\\ROCEPHIN 1 GM in Sodium Chloride 0.9% 100 ML IVPB SCH (14:06)
[2020-10-29] MEDS: Levothyroxine Sodium 50 MCG TAB PO SCH (05:16)
[2020-10-29] MEDS: traMADol HCl 50 MG TAB PO PRN (05:19)
[2020-10-29 07:23] VITALS: BP 146/90; TEMP 97.7
[2020-10-29] MEDS: Carvedilol 3.125 MG TAB PO SCH (07:52)
[2020-10-29] MEDS: Docusate 100 MG CAP PO SCH (07:52)
[2020-10-29] MEDS: Multivit, Therapeutic 1 TAB PO SCH (07:52)
[2020-10-29] MEDS: Lactinex Tablet PO SCH (07:52)
[2020-10-29] MEDS: Fish Oil 1,000 MG CAP PO SCH (07:52)
== END 2020-10-29 14:23 | disposition hospice, home (50) | DRG 853 ==
LOC: ERS 09:20 → CCU 16:39 → T4-B 10-13 13:46
PROVIDERS: ADMIT Internal Medicine; ATTEND Internal Medicine
PROC: 0T9130Z Drainage of Left Kidney with Drainage Device, Percutaneous Approach (ICD-10-PCS; principal; 2020-10-12)
PROC: 0T9030Z Drainage of Right Kidney with Drainage Device, Percutaneous Approach (ICD-10-PCS; 2020-10-12)
PROC: BT1D1ZZ Fluoroscopy of Right Kidney, Ureter and Bladder using Low Osmolar Contrast (ICD-10-PCS; 2020-10-12)
PROC: BT1B1ZZ Fluoroscopy of Bladder and Urethra using Low Osmolar Contrast (ICD-10-PCS; 2020-10-12)
PROC: 3E043XZ Introduction of Vasopressor into Central Vein, Percutaneous Approach (ICD-10-PCS; 2020-10-12)
PROC: 05H633Z Insertion of Infusion Device into Left Subclavian Vein, Percutaneous Approach (ICD-10-PCS; 2020-10-12)
PROC: 0T788DZ Dilation of Bilateral Ureters with Intraluminal Device, Via Natural or Artificial Opening Endoscopic (ICD-10-PCS; 2020-10-16)
PROC: 0T788DZ Dilation of Bilateral Ureters with Intraluminal Device, Via Natural or Artificial Opening Endoscopic (ICD-10-PCS; 2020-10-19)
PROC: 0FB13ZX Excision of Right Lobe Liver, Percutaneous Approach, Diagnostic (ICD-10-PCS; 2020-10-21)
PROC: 0DJD8ZZ Inspection of Lower Intestinal Tract, Via Natural or Artificial Opening Endoscopic (ICD-10-PCS; 2020-10-21)
PROC: 0TBC8ZZ Excision of Bladder Neck, Via Natural or Artificial Opening Endoscopic (ICD-10-PCS; 2020-10-22)
PROC: 0TF78ZZ Fragmentation in Left Ureter, Via Natural or Artificial Opening Endoscopic (ICD-10-PCS; 2020-10-22)
PROC: 0TF68ZZ Fragmentation in Right Ureter, Via Natural or Artificial Opening Endoscopic (ICD-10-PCS; 2020-10-22)
PROC: BT141ZZ Fluoroscopy of Kidneys, Ureters and Bladder using Low Osmolar Contrast (ICD-10-PCS; 2020-10-22)
DX: A41.9 Sepsis, unspecified organism (principal); G93.41 Metabolic encephalopathy; R65.21 Severe sepsis with septic shock; N13.4 Hydroureter; N17.9 Acute kidney failure, unspecified; N13.6 Pyonephrosis; N13.8 Other obstructive and reflux uropathy; C78.7 Secondary malignant neoplasm of liver and intrahepatic bile duct; D62 Acute posthemorrhagic anemia; E44.0 Moderate protein-calorie malnutrition; E87.1 Hypo-osmolality and hyponatremia; Z85.51 Personal history of malignant neoplasm of bladder; Z88.0 Allergy status to penicillin; Z79.82 Long term (current) use of aspirin; E78.5 Hyperlipidemia, unspecified; F32.9 Major depressive disorder, single episode, unspecified; Z82.3 Family history of stroke; E86.0 Dehydration; N32.3 Diverticulum of bladder; R31.0 Gross hematuria; D64.9 Anemia, unspecified; E87.6 Hypokalemia; N40.1 Benign prostatic hyperplasia with lower urinary tract symptoms; C61 Malignant neoplasm of prostate; N18.2 Chronic kidney disease, stage 2 (mild); E83.42 Hypomagnesemia; F41.9 Anxiety disorder, unspecified; Z68.24 Body mass index [BMI] 24.0-24.9, adult
CPT/HCPCS: 0240U; 36415; 36416; 36556; 47000; 50430; 50431; 50432; 50436; 51702; 70450; 71045; 72125; 74018; 74176; 74420; 76000; 76770; 77012; 80048; 80053; 80202; 81001; 82105; 82378; 82533; 82553; 83605; 83735; 83880; 84100; 84153; 84484; 85014; 85018; 85025; 85027; 85610; 85730; 86301; 86850; 86870; 86900; 86901; 86905; 86922; 87040; 87086; 87149; 88300; 88305; 88307; 88333; 88341; 88342; 93005; 93306; 96365; 96374; 99292; C1729; C9113; J0692; J0696; J1100; J1720; J1885; J2001; J2250; J2270; J2370; J2405; J2704; J3010; J3370; J3475; J3490; J7050; P9045; Q9961; Q9967; S0020